=== PATIENT | male | born 1980 | race Two or more races ===

== ENCOUNTER 2021-09-09 17:01 | Emergency (ER) | payer OTHER ==
[~2021-09-09] VITALS: Ht 180.3 cm; Wt 142.9 kg
[2021-09-09] MEDS ORDERED: BUTALB-ASPIRIN1 EACH PO (22:42)
== END 2021-09-09 22:44 | disposition home or self-care (01) ==
LOC: ER 17:01
DX: G43.909 Migraine, unspecified, not intractable, without status migrainosus (principal); Z20.822 Contact with and (suspected) exposure to COVID-19

== ENCOUNTER → 2021-09-11 | Emergency (ER) | payer OTHER | END | disposition home or self-care (01) | LOC: ER 17:16 | DX: H66.92 Otitis media, unspecified, left ear (principal) ==

== ENCOUNTER 2021-09-16 21:13 | Inpatient (IN) | payer OTHER ==
[~2021-09-16] VITALS: Ht 152.4 cm; Wt 142.9 kg
[~2021-09-16 21:13] MED LIST: BUTALB-ASPIRIN1 EACH PO
--- NOTE | 2021-09-16 21:56 | NUR ---
SE RECIBE PTE ALERTA Y ORIENTADO X3 CUAL REFOIERE VISION DOBLE HACE 6 MIRANDA. PTE CON REFEREIDO MEDICO. SE ROGERIO S/V Y SE UBICA.
--- NOTE | 2021-09-16 21:56 | NUR ---
SE [id number]
--- NOTE | 2021-09-16 22:32 | NUR ---
PTE MASCULINO ALERTA Y ORIENTADO X3 ES EVALUADO PO . SE ORIENTA SOBRE ORDENES D ETX REFIERE COMPRENDER. SE EXTRAEN MUESTRAS DE LABORATORIOS Y SE CANALIZA VENA BAJO MEDIDAS ASEPTICAS. SE ADMINISTRAN MEDICAMENTOS, BAJO MEDIDAS ASEPTICAS. SE NOTIFICA A RADIOLOGIA PARA CT. SE REALIZA EKG Y SE PRESENTA A MD.
--- NOTE | 2021-09-17 04:02 | NUR ---
PTE ALERTA Y ORIENTADO X3 ESFERAS EN ARPIT CON BARANDAS ELEVADAS,SIN FAMILIAR AL MOMENTO DE LA RISHI,AREA DE VENOPUNCION PATENTE Y JIM DE EDEMA CON FLUIDOS DE MANTENIMIENTO BAJANDO SIN DIFICULTAD.PENDIENTE A EVALUACION DE DR GUTIERRES.
--- NOTE | 2021-09-17 07:16 | NUR ---
SE RECIBE PTE ALERTO Y ORIENTADO X3, ACOMPANADO DE FAMILIAR. TIENE CANALIZACION EN MANO IZQUIERDA CON UN ANGIO #18, BAJANDO 0.45NSS @100ML/HR. TIENE PENDIENTE CONSULTA CON DR GUTIERRES. ARPIT EN NIVEL MAS BAJO Y BARANDAS ELEVADAS POR PRECAUCION. SE LINO SV Y SE MANTIENE EN OBSERVACION.
== END 2021-09-26 17:34 | disposition home or self-care (01) | DRG 103 ==
LOC: ER 21:13 → MEDI 09-17 12:55 → SEC-K 09-17 12:55 → MEDJ 09-17 12:55 → MEDI 09-23 19:00
PROVIDERS: Anesthesiology Pain Medicine; ADMIT Internal Medicine; ATTEND Internal Medicine
PROC: BW28ZZZ Computerized Tomography (CT Scan) of Head (ICD-10-PCS; 2021-09-17)
PROC: 009U3ZX Drainage of Spinal Canal, Percutaneous Approach, Diagnostic (ICD-10-PCS; principal; 2021-09-24 17:30)
DX: G93.2 Benign intracranial hypertension (principal); I16.1 Hypertensive emergency; H53.2 Diplopia; Z20.822 Contact with and (suspected) exposure to COVID-19